=== PATIENT | female | born 1955 | race Caucasian/White ===

== ENCOUNTER → 2017-04-30 | Outpatient (CLI) | payer BC | LOC: MC.RAD 04-23 13:20 | DX: Z12.31 Encounter for screening mammogram for malignant neoplasm of breast (principal) ==

== ENCOUNTER → 2018-06-27 | Outpatient (CLI) | payer BC | LOC: MC.RAD 10:49 | DX: Z12.31 Encounter for screening mammogram for malignant neoplasm of breast (principal) ==

== ENCOUNTER → 2019-06-29 | Outpatient (CLI) | payer BC | LOC: MC.RAD 10:13 | DX: Z12.31 Encounter for screening mammogram for malignant neoplasm of breast (principal) ==

== ENCOUNTER → 2020-07-20 | Outpatient (CLI) | payer BC | LOC: MC.RAD 13:34 | DX: Z12.31 Encounter for screening mammogram for malignant neoplasm of breast (principal) ==

== ENCOUNTER 2021-05-13 20:03 | Emergency (ER) | payer BC ==
[~2021-05-13] VITALS: Ht 170.2 cm; Wt 61.4 kg
[2021-05-13] MEDS ORDERED: CEPHALEXIN500 M1 PO (20:39)
[2021-05-13] MEDS ORDERED: AKTOB 5 ML5 ML OP (21:54)
[2021-05-13 22:15] VITALS: BP 140/78; PULSE 87; TEMP 97.2
== END 2021-05-13 22:15 | disposition home or self-care (01) ==
LOC: COL.ER 20:03
DX: H00.014 Hordeolum externum left upper eyelid (principal)

== ENCOUNTER → 2021-08-21 | Outpatient (CLI) | payer BC ==
[~2021-08-21] MED LIST: AKTOB 5 ML5 ML OP; CEPHALEXIN500 M1 PO
== END ==
LOC: MC.RAD 13:24
DX: Z12.31 Encounter for screening mammogram for malignant neoplasm of breast (principal)

== ENCOUNTER → 2021-11-20 | Outpatient (CLI) | payer BC | LOC: ZCOL.LAB 17:05 | DX: R05.1 Acute cough (principal); Z20.822 Contact with and (suspected) exposure to COVID-19 ==

== ENCOUNTER → 2024-03-03 | Outpatient (CLI) | payer MEDICARE, BC | LOC: MC.RAD 09:59 | DX: Z12.31 Encounter for screening mammogram for malignant neoplasm of breast (principal) ==